=== PATIENT | male | born 2000 | race Caucasian/White ===

== ENCOUNTER 2021-06-23 01:19 | Emergency (ER) | payer SELFPAY ==
[~2021-06-23] VITALS: Ht 170.2 cm; Wt 57.0 kg
[2021-06-23] MEDS ORDERED: ONDANSETRON HCL 4MG/2ML INJ IV STA (01:30)
[2021-06-23] MEDS ORDERED: SODIUM CHLORIDE 0.9% 1,000 ML IV ONE (01:30)
[2021-06-23] MEDS ORDERED: OLANZAPINE 10 MG/VIAL IM ONE (02:15)
[2021-06-23 08:17] LABS: BASOPHILS % 0.6 % (0.0-2.0); EOSINOPHILS % 4.2 % (0.0-5.0); HEMATOCRIT. 47.5 % (42.0-52.0); HEMOGLOBIN. 16.6 g/dL (14.0-18.0); LYMPHOCYTES % 37.3 % (20.0-50.0); MEAN CORPUSCULAR HEMOGLOBIN 32.5 pg (28.0-32.0); MEAN CORPUSCULAR VOLUME 92.8 fL (80.0-94.0); MEAN PLATELET VOLUME 7.5 fl (7.4-10.4); MONOCYTES % 6.1 % (2.0-8.0); NEUTROPHILS % 51.8 % (40.0-76.0); PLATELET 303 x1000/uL (130-400); RED BLOOD CELL COUNT 5.12 mill/uL (4.7-6.1); RED CELL DISTRIBUTION WIDTH 13.4 % (11.6-14.6)
[2021-06-23 08:22] LABS: CHLORIDE 111 mEq/L (98-107)
[2021-06-23 08:26] LABS: ETHANOL BLOOD 132 mg/dL
[2021-06-23] MEDS ORDERED: CHLORDIAZEPOXIDE 25MG CAPSULE PO ONE (13:30)
[2021-06-23 14:04] VITALS: BP 96/51
== END 2021-06-23 16:11 | disposition home or self-care (01) ==
LOC: ER 01:19 → EDBD 01:19 → ER 16:11
DX: R41.82 Altered mental status, unspecified (principal)
CPT/HCPCS: 36415; 80053; 80320; 85025; 96360; 96372; 99283; J3490; J7030; Z7610; G0480